=== PATIENT | female | born 1945 | race Caucasian/White ===

== ENCOUNTER 2024-09-21 08:57 | Emergency (ER) | payer OTHER, MEDICARE ==
[~2024-09-21] VITALS: Ht 167.6 cm; Wt 96.6 kg
[~2024-09-21 08:57] MED LIST: BACTRIM DS TAB1 EACH PO; BIOTIN1 MG PO; FISH OIL 1,2001 EAC1 PO; HYDROCODON-ACE1 EA11 PO; IRON159 MG PO; MIRALAX17 GM PO; ONDANSETRON HCL4 MG PO; OXYCODONE HCL5 MG PO; VITAMIN C500 M1 PO; VITAMIN D32000 UNI1 PO; XARELTO10 MG PO
[2024-09-21 10:20] VITALS: BP 137/85
== END 2024-09-21 10:20 | disposition home or self-care (01) ==
LOC: ED 08:57
DX: S42.291A Other displaced fracture of upper end of right humerus, initial encounter for closed fracture (principal); S01.21XA Laceration without foreign body of nose, initial encounter; Z79.01 Long term (current) use of anticoagulants; Z79.899 Other long term (current) drug therapy; W01.10XA Fall on same level from slipping, tripping and stumbling with subsequent striking against unspecified object, initial encounter
CPT/HCPCS: 73030; 99283